=== PATIENT | male | born 1980 | race African-American/Black ===

== ENCOUNTER → 2017-02-25 | Outpatient (CLI) | payer OTHER ==
--- NOTE | 2017-02-27 18:19 | CDE ---
ADMIT: 02/25/2017 RM/LOC: [email or web address] MR#: [id number] [address] [id number] JM YAN [address] [place] [address] Chemical Dependency Evaluation SEX: M AGE: 36 : 1980 A. DEMOGRAPHICS: NAME: Jm Yan DATE OF : 1980 EVALUATING COUNSELOR: FRANC Duggan, FORMERLY NAMED [facility] DATE OF EVALUATION: 02/25/2017 B. PRESENTING PROBLEM/CHIEF COMPLAINT: This client is an adult, 36-year-old, who is being referred by his special weapons unit officer to get this drug and alcohol evaluation. He reports that he was in nursing home from 07/14/2015 to 01/10/2017 for distribution of marijuana. He stated that this is the second time he has been in nursing home. The first time was in 2009 for possession with intent to deliver marijuana, and he was in nursing home for 2 to 3 years for that charge. C. MEDICAL HISTORY: Client denies having any medical problems and he is not on any medication. D. WORK/SCHOOL/ HISTORY: Client reports that he has a 12th grade education. 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 He has never been in the . E. ALCOHOL/DRUG ASSESSMENT SUMMARY: ALCOHOL: Client first drank at age 21. He mostly drank on the weekends, two drinks. The last time he drank alcohol was in 2006. MARIJUANA: He first smoked marijuana at age 16, and at age 21 on a regular basis at least three times a week, smoking two blunts a day. The last time he smoked marijuana was in January 2015. COCAINE: Denies any use. AMPHETAMINES: Denies any use. HALLUCINOGENS: Denies any use. HEROIN: Denies any use. PRESCRIPTION DRUGS: Has never abused. OTHER DRUGS (INHALANTS, OVER THE COUNTER, ETC): Denies any use. NICOTINE: Denies any use. F. LEGAL HISTORY: Client reports that at age 17, he got a trespassing charge and he had to go to retirement for one month. In 2009, he got possession with intent to distribute marijuana. He got nursing home time 2-3 years. 2014, he got distribution of marijuana and he was in nursing home from 07/14/2015 to 01/10/2017. He is currently on parole. I contacted client's special weapons unit officer, Deisi Lazo. She shared some of the assessments they had done in parole and he showed a moderate ADMIT: 02/25/2017 RM/LOC: [facility] MR#: [id number] [address] [place] [id number] JM YAN [address] [place] [address] Chemical Dependency Evaluation SEX: M AGE: 36 : 1980 problem with substance use. She did not have any concerns right at this time. G. FAMILY/SOCIAL/PEER HISTORY: Client reports he was raised by his grandmother in [place], [place]. He said his mom was alcoholic and not around, so his grandma took over. He never had a relationship with his father. He has a sister who works at a bank and a brother who works as a cook. He has a girlfriend. He has been in this relationship for two years. He has five children ranging from age 12 to age 3, and they have five different mothers. He pays child support on three of them. H. PSYCHIATRIC/BEHAVIORAL HISTORY: Client was asked if he has ever thought of suicide, he said no, and there is no family history of suicide. He has never been in any counseling besides when he was in nursing home. He said he did some drug and alcohol treatment. I. COLLATERAL INFORMATION: I contacted client's girlfriend and she said she does not have any concerns at this time. She said she does not believe he is using. THE DRINKER TYPE RATING: Is a measure of how the client perceives their own drinking and/or using. This rating is indicative of how resistant or accepting the person is to the drinking problem. The client chose their rating from the following classifications: ALCOHOL Total Abstainer Light Social (non-problem) Drinker Moderate Social (non-problem) Drinker User Heavy Social (non-problem)Drinker Problem Drinker Alcoholic OTHER DRUG Nonuser Light Social (non-problem) User Moderate Social (non-problem) User Heavy Social (non-problem) User Problem User Addicted/Dependent Client said he is a total abstainer of alcohol and a nonuser of drugs, so I asked him when using what would he identify with and he chose light social nonproblem user. ADMIT: 02/25/2017 RM/LOC: [facility] MR#: [id number] [address] [place], [place] [id number] [place] [address] Chemical Dependency Evaluation SEX: M AGE: 36 : 1980 SUBSTANCE ABUSE SUBTLE SCREENING INVENTORY (SASSI): The SASSI is an assessment tool specifically designed to provide a clearer picture of what lies beneath the facade presented by most patients or clients. Scores on this assessment aid in distinguishing nonabusers from abusers, alcoholics from drug abusers and nondefensive clients from defensive ones. The incorporation of a "denial scale" further enhances the ability to make an accurate recommendation. Client scores are: Face Valid Alcohol (FVA): 0. Face Valid Other Drugs (FVOD): 0. Symptoms (SYM): 0. Obvious Attributes (OAT): 3. Subtle Attributes (SAT): 1. Defensiveness (DEF): 9. Supplemental Addiction Measure (LOR): 6. Family versus Controls (FAM): 13. Correctional (COR): 2. Random Answering Pattern (RAP): The decision rule shows low probability of substance use disorder. However, client had a 9 on the defensiveness score. If the client rates an 8 or higher on the DEF scores, this increases the possibility of the SASSI missing individuals with substance use disorder. This could also mean that this client was trying to look like he had no problem with drugs or alcohol. We administered the ASI. Please see attached summary sheet. K. CLINICAL IMPRESSION: This client answered the questions. However, he answered a lot of them with a no. When asking the questions over again, he only changed one of them to a yes. It appears that this client was denying that he had any problems now or in the past with substance use. Diagnosis for this client is F12.20, cannabis use disorder, moderate. Criteria showing this diagnosis is client has had a persistent desire but unsuccessful efforts to cut down or control his use. A great deal of time was spent in activities obtaining, using, or recovering from the effects. Client has had a strong desire to use the substance. He has had continued use despite persistent or recurrent social or interpersonal problems caused or exasperated by the use. Tolerance; client has needed increased amounts to get the same effects. Consequences client has had from his substance use are legal, he has been in nursing home two times. He has also had a trespassing charge and he was unsure if he had any other legal charges or not. Client has not had a job for any length of ADMIT: 02/25/2017 RM/LOC: [facility] MR#: [id number] [address] [place] [id number] J[address] YAN [address] [place] [id number] Chemical Dependency Evaluation SEX: M AGE: 36 : 1980 time in the past. The longest he had a job was four years when he worked at [employer], and he stated that he was fired or he quit. Client has a pattern of being in several different relationships and all of his children have different mothers. L. RECOMMENDATIONS PRESENTED TO CLIENT: Recommendations are for this client to attend an intensive outpatient program. CLIENT/FAMILY RESPONSE: Client stated that he has already done an IOP program when he was in nursing home. That is the only comment he made. [facility] CLINICAL ASSESSMENT CRITERIA: Low/Medium/High Dimension 1 = Intoxication and Withdrawal (i.e. history of withdrawal, level of current use): Low. Dimension 2 = Medical (i.e. , diabetes, medications, chronic conditions): Low. Dimension 3 = Emotional/Behavior Conditions (i.e. psych history, impulsivity, depression, anxiety, trauma history): Medium to high. Dimension 4 = Treatment Acceptance/Resistance (i.e. past history, minimization/blame, acknowledgement of problem, pressure to seek treatment, does not feel they have a problem): Medium. Dimension 5 = Relapse Potential (i.e. inability to abstain, use despite consequences, significant preoccupation, relapse despite outpatient treatment attempts): Medium to high. ADMIT: 02/25/2017 RM/LOC: [facility] MR#: [id number] [address] [place] [id number] JM YAN [address] [place] [address] Chemical Dependency Evaluation SEX: M AGE: 36 : 1980 Dimension 6 = Recovery/Living Environment (i.e. current users reside in environment, family attitude, lack of consistent adult support in living environment, high exposure to using in social/work environment): Medium to high. CRIMINOGENIC RISK FACTORS: Low/Moderate/High Antisocial Attitudes: Medium. Antisocial Peers: Medium. Self Control Skills: Medium. Family Dysfunction: High. Past Criminality: High. FRANC Duggan, PRINCESS/ mary JOB #: [id number] CC:
== END | disposition home or self-care (01) ==
LOC: ADTC.GI 13:00
DX: F12.20 Cannabis dependence, uncomplicated (principal)